=== PATIENT | female | born 1960 | race Caucasian/White ===

== ENCOUNTER 2018-11-17 08:15 | Day surgery (SDC) | payer MEDICARE, BC ==
[2018-11-17] VITALS (8 sets, daily range): BP systolic 105–127; BP diastolic 55–65
[~2018-11-17] VITALS: Ht 165.1 cm; Wt 112.2 kg
[2018-11-17] MEDS ORDERED: normal saline 1000ml 1,000 ML IV PRN (08:35)
[2018-11-17 08:50] LABS: BASOPHILS # (AUTO) 0.1 X10'3 (0-0.2); BASOPHILS % (AUTO) 0.8 % (0-1); EOSINOPHILS # (AUTO) 0.1 X10'3 (0-0.9); EOSINOPHILS % (AUTO) 0.6 % (0-6); HEMATOCRIT 35.5 % (35.0-45.0); HEMOGLOBIN 11.5 g/dl (12.0-16.0); LYMPHOCYTES # (AUTO) 1.2 X10'3 (1.1-4.8); MEAN CORPUSCULAR HEMOGLOBIN 28.6 PG (27.0-31.0); MEAN CORPUSCULAR HGB CONC 32.3 g/dL (33.0-36.5); MEAN CORPUSCULAR VOLUME 88.4 FL (78-98); MEAN PLATELET VOLUME 8.8 FL (7.4-10.4); MONOCYTES # (AUTO) 0.7 X10'3 (0-0.9); MONOCYTES % (AUTO) 8.3 % (2-12); NEUTROPHILS # (AUTO) 6.9 X10'3 (1.8-7.7); NEUTROPHILS % (AUTO) 77.3 % (42-75); PLATELET COUNT 210 X10'3 (140-440); RED BLOOD COUNT 4.01 X10'6 (4.20-5.60); RED CELL DISTRIBUTION WIDTH 19.8 % (11.5-14.5); WHITE BLOOD COUNT 8.9 X10'3 (4.5-11.0)
[2018-11-17 08:52] LABS: ALBUMIN 3.8 G/DL (3.4-5.0); ANION GAP 11 (8-16); BLOOD UREA NITROGEN 27 MG/DL (7-18); BUN/CREATININE RATIO 4.9 (6.6-38.0); CHLORIDE 95 MMOL/L (99-107); CREATININE 5.47 MG/DL (0.40-0.90); GLUCOSE 115 MG/DL (70-104); POTASSIUM 4.4 MMOL/L (3.5-5.1); SODIUM 136 MMOL/L (135-145); TOTAL CARBON DIOXIDE 30.3 MMOL/L (24-32); eGFR 8 ML/MIN
[2018-11-17] MEDS ORDERED: diphenhydrAMINE 25mg capsule PO ONE (09:20)
[2018-11-17] MEDS ORDERED: fentaNYL/PF 50MCG/1 ML 2ML syringe IV PRN (09:25)
[2018-11-17] MEDS ORDERED: midazolam 2 mg/2 ml injection IV PRN (09:25)
[2018-11-17] MEDS ORDERED: LIDOcaine 1%/PF 5ML 10 MG/ML VIAL SQ ONE (09:25)
[2018-11-17] MEDS ORDERED: heparin 1,000 UNITS/NS 500ml 500 ML ICATH ONE (09:25)
[2018-11-17] MEDS ORDERED: FOLI0.8T22 PO (09:38)
[2018-11-17] MEDS ORDERED: VENL-191 PO (09:38)
[2018-11-17] MEDS ORDERED: CINA30TA2 PO (09:38)
[2018-11-17] MEDS ORDERED: DOXE50CA4 PO (09:38)
[2018-11-17] MEDS ORDERED: LIDO700A32 (09:38)
[2018-11-17] MEDS ORDERED: LYR25C PO (09:38)
[2018-11-17] MEDS ORDERED: CALC667T6 PO (09:38)
[2018-11-17] MEDS ORDERED: CALC1AMP PO (09:38)
[2018-11-17] MEDS ORDERED: METO-384 PO (09:38)
[2018-11-17] MEDS ORDERED: SEVE800T8 PO (09:38)
[2018-11-17] MEDS ORDERED: FOLI1TAB16 PO (09:38)
[2018-11-17 09:46] LABS: ANISOCYTOSIS 2+; ELLIPTOCYTES FEW; PLATELET ESTIMATE NORMAL; POLYCHROMASIA FEW; TEAR DROP CELLS FEW
[2018-11-17] MEDS ORDERED: LIDOcaine 1%/PF 5ML 10 MG/ML VIAL ONE (10:39)
[2018-11-17] MEDS ORDERED: midazolam 2 mg/2 ml injection ONE ×2 (10:39→11:14)
[2018-11-17] MEDS ORDERED: fentaNYL/PF 50MCG/1 ML 2ML syringe ONE ×2 (10:40→11:45)
[2018-11-17] MEDS ORDERED: iohexol 300mg/ml 100ml inj. ONE (10:40)
[2018-11-17] MEDS ORDERED: heparin 1,000 UNITS/NS 500ml 500 ML ONE (10:40)
== END 2018-11-17 14:30 | disposition home or self-care (01) ==
LOC: SSTAY O 08:15
PROVIDERS: ATTEND Radiology Diagnostic Radiology
DX: T82.858A Stenosis of other vascular prosthetic devices, implants and grafts, initial encounter (principal); I12.0 Hypertensive chronic kidney disease with stage 5 chronic kidney disease or end stage renal disease; N18.6 End stage renal disease; G62.9 Polyneuropathy, unspecified; G89.29 Other chronic pain; Z90.710 Acquired absence of both cervix and uterus; Z98.49 Cataract extraction status, unspecified eye; Z98.890 Other specified postprocedural states; Z79.899 Other long term (current) drug therapy; Y83.8 Other surgical procedures as the cause of abnormal reaction of the patient, or of later complication, without mention of misadventure at the time of the procedure; Z91.041 Radiographic dye allergy status
CPT/HCPCS: 36415; 36902; 80048; 85025; 85610; 99152; 99153; C1725; C1769; C1894; J1644; J2250; J3010; J7030; Q0163; Q9967

== ENCOUNTER → 2019-11-30 | Outpatient (CLI) | payer OTHER ==
[~2019-11-30] MED LIST: CALC1AMP PO; CALC667T6 PO; CINA30TA2 PO; DOXE50CA4 PO; FOLI0.8T22 PO; FOLI1TAB16 PO; LIDO700A32; LYR25C PO; METO-384 PO; SEVE800T8 PO; VENL-191 PO
== END | disposition home or self-care (01) ==
LOC: 64 CT 15:10
PROVIDERS: ATTEND Internal Medicine Critical Care Medicine
DX: K57.30 Diverticulosis of large intestine without perforation or abscess without bleeding (principal); I51.7 Cardiomegaly; R16.1 Splenomegaly, not elsewhere classified; R91.1 Solitary pulmonary nodule; N26.1 Atrophy of kidney (terminal); I25.10 Atherosclerotic heart disease of native coronary artery without angina pectoris
CPT/HCPCS: 74176

== ENCOUNTER 2019-12-31 11:15 | Day surgery (SDC) | payer OTHER ==
[~2019-12-31] VITALS: Ht 165.1 cm; Wt 109.0 kg
[2019-12-31 11:28] VITALS: BP 106/57
[2019-12-31] MEDS ORDERED: GABA300C PO (11:37)
[2019-12-31 12:15] VITALS: BP 113/72
== END 2019-12-31 14:00 | disposition home or self-care (01) ==
LOC: SSTAY O 11:15
PROVIDERS: ATTEND Radiology Diagnostic Radiology
DX: Z49.01 Encounter for fitting and adjustment of extracorporeal dialysis catheter (principal); N18.6 End stage renal disease; Z93.3 Colostomy status; Z88.8 Allergy status to other drugs, medicaments and biological substances; Z91.041 Radiographic dye allergy status; Z79.899 Other long term (current) drug therapy
CPT/HCPCS: 36589